=== PATIENT | male | born 1930 | race African-American/Black ===

== ENCOUNTER 2018-03-10 11:46 | Inpatient (IN) | payer MEDICARE ==
[~2018-03-10] VITALS: Ht 170.2 cm; Wt 86.8 kg
[~2018-03-10 11:46] MED LIST: ADALAT CC30 MG PO; CALCIUM CITRAT200 MG PO; CENTRUM SILVER1 CTB PO; CITRUCEL PACKET1 PKT PO; CITRUCEL WITH500 MG PO; COD LIVER OIL 11 SGL PO; COD LIVER OIL1 CAP PO; FISH OIL CONC1000 MG PO; FLOMAX 0.40.4 MG/CAP PO; MACROBID 1100 MG/CAP PO; MAREPA1200 MG PO; MUCINEX 60600 MG/TA1 PO; NIFEDIAC CC30 MG PO; TRIAMTERENE AND1 TA1 PO; TRIAMTERENE AND1 TAB PO; TYLENOL 500MG500 MG PO; TYLENOL PM EXTR1 TA1 PO; VITAMIN C BUFF500 MG PO; VITAMIN C500 MG PO
[2018-03-10 15:22] VITALS: BP 140/58
[2018-03-10 17:26] LABS: MEAN CELL VOLUME 93 fl (80.0-100.0); MEAN CORPUSCULAR HGB CONC 37 g/dl (33.0-37.0); MEAN PLATELET VOLUME 10.1 fl (7.4-10.4); PLATELET COUNT 210 K/mm3 (130-400); RED BLOOD COUNT 2.57 M/mm3 (4.20-5.60); REDCELL DISTRIBUTION WIDTH-CV 12.5 % (11.5-14.5)
[2018-03-10 17:27] LABS: HEMATOCRIT 23.8 % (42.0-52.0); HEMOGLOBIN 8.9 g/dl (13.5-18.0); MEAN CORPUSCULAR HEMOGLOBIN 35 pg (27.0-31.0)
[2018-03-10 17:31] LABS: ALBUMIN 3.6 gm/dL (3.5-5.0); BILIRUBIN,TOTAL 0.8 mg/dL (0.0-1.0); CALCIUM 8.8 mg/dL (8.4-10.2); CREATININE, serum 1.06 mg/dL (0.66-1.25); MAGNESIUM 1.9 mg/dL (1.6-2.3); POTASSIUM 3.7 mmol/L (3.4-5.0); TOTAL PROTEIN 7.4 gm/dL (6.4-8.2)
[2018-03-10 18:17] LABS: BAND 7 % (0-10); BASOPHIL 1 % (0-2); EOSINOPHIL 1 % (0-4); LYMPHOCYTE 27 % (20.0-51.0); METAMYELOCYTE 1 % (0-0); NEUTROPHILS 61 % (42.0-75.2); NUCLEATED RED BLOOD CELL 1 (0-6)
[2018-03-10 18:18] LABS: PLATELET ESTIMATE NORMAL (NORMAL)
[2018-03-10 20:19] VITALS: BP 122/59; PULSE 99; TEMP 98.1
[2018-03-10 23:59] VITALS: BP 130/55; PULSE 68; TEMP 97.6
[2018-03-11] VITALS (7 sets, daily range): BP systolic 115–161; BP diastolic 55–85; PULSE 57–91; TEMP 97.4–100.6
[2018-03-11 06:20] LABS: MEAN CELL VOLUME 96 fl (80.0-100.0); MEAN CORPUSCULAR HGB CONC 37 g/dl (33.0-37.0); PLATELET COUNT 187 K/mm3 (130-400); RED BLOOD COUNT 2.07 M/mm3 (4.20-5.60); REDCELL DISTRIBUTION WIDTH-CV 12.6 % (11.5-14.5)
[2018-03-11 06:22] LABS: HEMATOCRIT 19.9 % (42.0-52.0); HEMOGLOBIN 7.3 g/dl (13.5-18.0); MEAN CORPUSCULAR HEMOGLOBIN 35 pg (27.0-31.0)
[2018-03-11 06:30] LABS: CALCIUM 7.8 mg/dL (8.4-10.2); CREATININE, serum 0.89 mg/dL (0.66-1.25); POTASSIUM 3.6 mmol/L (3.4-5.0)
[2018-03-11 07:43] LABS: BAND 2 % (0-10); EOSINOPHIL 4 % (0-4); LYMPHOCYTE 26 % (20.0-51.0); METAMYELOCYTE 1 % (0-0); NEUTROPHILS 61 % (42.0-75.2); NUCLEATED RED BLOOD CELL 1 (0-6); PLATELET ESTIMATE NORMAL (NORMAL)
[2018-03-12 04:15] VITALS: BP 119/52; PULSE 87; TEMP 99.5
[2018-03-12 06:56] LABS: MEAN CELL VOLUME 96 fl (80.0-100.0); MEAN CORPUSCULAR HGB CONC 36 g/dl (33.0-37.0); MEAN PLATELET VOLUME 9.8 fl (7.4-10.4); PLATELET COUNT 244 K/mm3 (130-400); RED BLOOD COUNT 2.21 M/mm3 (4.20-5.60); REDCELL DISTRIBUTION WIDTH-CV 12.6 % (11.5-14.5)
[2018-03-12 07:05] LABS: HEMATOCRIT 21.2 % (42.0-52.0); HEMOGLOBIN 7.7 g/dl (13.5-18.0); MEAN CORPUSCULAR HEMOGLOBIN 35 pg (27.0-31.0)
[2018-03-12 07:14] LABS: CALCIUM 7.8 mg/dL (8.4-10.2); CREATININE, serum 0.93 mg/dL (0.66-1.25); POTASSIUM 3.5 mmol/L (3.4-5.0)
[2018-03-12 07:56] LABS: BAND 14 % (0-10); DOHLE BODIES PRESENT; EOSINOPHIL 1 % (0-4); LYMPHOCYTE 17 % (20.0-51.0); NEUTROPHILS 64 % (42.0-75.2); PLATELET ESTIMATE NORMAL (NORMAL); POLYCHROMASIA 2+; TOXIC GRANULATION PRESENT
[2018-03-12 08:11] VITALS: BP 135/58; PULSE 83; TEMP 98.9
[2018-03-12 11:50] LABS: COLLECTION METHOD CLEAN CATCH
[2018-03-12 12:04] LABS: MUCOUS Present /lpf; PH 5 (5-8); SQUAMOUS EPITHELIAL 0-2 /hpf; URINE APPEARANCE Hazy; URINE BACTERIA None Seen /hpf; URINE BILIRUBIN Negative (NEGATIVE); URINE BLOOD 1+ (NEGATIVE); URINE COLOR Yellow; URINE GLUCOSE Negative (NEGATIVE); URINE KETONE Trace (NEGATIVE); URINE LEUKOCYTE ESTERASE Negative (NEGATIVE); URINE NITRATE Negative (NEGATIVE); URINE PROTEIN(semi-quant) Negative (NEGATIVE); URINE UROBILINOGEN Negative (NEGATIVE)
[2018-03-12 12:30] VITALS: BP 129/54; PULSE 86; TEMP 98.7
[2018-03-12 16:24] VITALS: BP 136/67; PULSE 90; TEMP 99.1
[2018-03-12 20:16] VITALS: BP 127/57; PULSE 85; TEMP 98.5
[2018-03-12 23:25] VITALS: BP 101/48; PULSE 93; TEMP 98.6
[2018-03-13] VITALS (9 sets, daily range): BP systolic 113–143; BP diastolic 49–75; PULSE 35–95; TEMP 97.9–98.2
[2018-03-13 06:41] LABS: MEAN CELL VOLUME 98 fl (80.0-100.0); MEAN CORPUSCULAR HGB CONC 35 g/dl (33.0-37.0); MEAN PLATELET VOLUME 9.6 fl (7.4-10.4); PLATELET COUNT 269 K/mm3 (130-400); RED BLOOD COUNT 2.19 M/mm3 (4.20-5.60); REDCELL DISTRIBUTION WIDTH-CV 14.6 % (11.5-14.5)
[2018-03-13 06:49] LABS: HEMATOCRIT 21.5 % (42.0-52.0); HEMOGLOBIN 7.6 g/dl (13.5-18.0); MEAN CORPUSCULAR HEMOGLOBIN 35 pg (27.0-31.0)
[2018-03-13 06:57] LABS: CALCIUM 7.6 mg/dL (8.4-10.2); CREATININE, serum 0.91 mg/dL (0.66-1.25)
[2018-03-13 08:04] LABS: BAND 15 % (0-10); LYMPHOCYTE 16 % (20.0-51.0); NEUTROPHILS 69 % (42.0-75.2)
[2018-03-13 08:05] LABS: PLATELET ESTIMATE NORMAL (NORMAL)
[2018-03-14 04:53] VITALS: BP 119/52; PULSE 82; TEMP 98
[2018-03-14 08:11] LABS: MEAN CELL VOLUME 96 fl (80.0-100.0); MEAN CORPUSCULAR HGB CONC 36 g/dl (33.0-37.0); MEAN PLATELET VOLUME 9.3 fl (7.4-10.4); PLATELET COUNT 286 K/mm3 (130-400); RED BLOOD COUNT 2.12 M/mm3 (4.20-5.60); REDCELL DISTRIBUTION WIDTH-CV 14.8 % (11.5-14.5)
[2018-03-14 08:15] LABS: HEMATOCRIT 20.3 % (42.0-52.0); HEMOGLOBIN 7.3 g/dl (13.5-18.0); MEAN CORPUSCULAR HEMOGLOBIN 34 pg (27.0-31.0)
[2018-03-14 08:20] VITALS: BP 138/75; PULSE 90; TEMP 98.4
[2018-03-14 08:25] LABS: CALCIUM 7.7 mg/dL (8.4-10.2); CREATININE, serum 0.92 mg/dL (0.66-1.25); POTASSIUM 3.3 mmol/L (3.4-5.0)
[2018-03-14 09:11] LABS: BAND 12 % (0-10); EOSINOPHIL 2 % (0-4); LYMPHOCYTE 16 % (20.0-51.0); METAMYELOCYTE 1 % (0-0); NEUTROPHILS 69 % (42.0-75.2); PLATELET ESTIMATE NORMAL (NORMAL); POLYCHROMASIA 1+
[2018-03-14 09:12] LABS: HYPOCHROMIA 1+
[2018-03-14] MEDS ORDERED: K-DUR20 MEQ PO (10:11)
[2018-03-14] MEDS ORDERED: FERROUS SU325 MG/TAB PO (10:26)
[2018-03-14] MEDS ORDERED: MACROBID 1100 MG/CAP PO ×2 (11:42→11:43)
[2018-03-14 12:20] VITALS: BP 123/62; PULSE 84; TEMP 98.3
== END 2018-03-14 15:10 | disposition home health service (06) | DRG 378 ==
LOC: COL.ER 11:46 → MEDICAL 14:23
PROVIDERS: Internal Medicine Gastroenterology; Nurse Practitioner Family; Physician Assistant
PROC: 0DJ08ZZ Inspection of Upper Intestinal Tract, Via Natural or Artificial Opening Endoscopic (ICD-10-PCS; principal; 2018-03-13 14:45)
PROC: 0DJD8ZZ Inspection of Lower Intestinal Tract, Via Natural or Artificial Opening Endoscopic (ICD-10-PCS; 2018-03-13 14:45)
DX: K57.31 Diverticulosis of large intestine without perforation or abscess with bleeding (principal); N39.0 Urinary tract infection, site not specified; R78.81 Bacteremia; B96.89 Other specified bacterial agents as the cause of diseases classified elsewhere; N40.1 Benign prostatic hyperplasia with lower urinary tract symptoms; R33.8 Other retention of urine; I10 Essential (primary) hypertension; Z87.891 Personal history of nicotine dependence; D50.0 Iron deficiency anemia secondary to blood loss (chronic); E87.6 Hypokalemia
CPT/HCPCS: 99223-AI; 99231-AI; 99232-AI; 99233-AI; 99238; 99239; C9113; G0103; G0378; G8978-GP; G8979-GP; G8987-GO; G8988-GO; J0696; J1644; J1650; J2250; J3010; J3475; J7030

== ENCOUNTER 2018-05-31 18:47 | Inpatient (IN) | payer MEDICARE, OTHER ==
[~2018-05-31] VITALS: Ht 170.2 cm; Wt 82.9 kg
[~2018-05-31 18:47] MED LIST changes: +FERROUS SU325 MG/TAB PO; +K-DUR20 MEQ PO
[2018-05-31 20:32] LABS: COLLECTION METHOD CLEAN CATCH
[2018-05-31 20:38] LABS: BASO # 0.1 (0.0-0.2); BASO % 1.4 % (0.0-2.0); EOS # 0.1 (0.0-0.7); EOS % 1.5 % (0-4.0); GRAN # 4.1 (1.4-6.5); GRAN % 63.6 % (42.2-75.2); HEMATOCRIT 40.8 % (42.0-52.0); HEMOGLOBIN 14.6 g/dl (13.5-18.0); LYMPH # 1.8 (1.2-3.4); LYMPH % 27.2 % (20.0-51.0); MEAN CELL VOLUME 94 fl (80.0-100.0); MEAN CORPUSCULAR HEMOGLOBIN 34 pg (27.0-31.0); MEAN CORPUSCULAR HGB CONC 36 g/dl (33.0-37.0); MEAN PLATELET VOLUME 9.1 fl (7.4-10.4); MONO # 0.4 (0.1-0.6); MUCOUS Present /lpf; PH 5 (5-8); PLATELET COUNT 283 K/mm3 (130-400); RED BLOOD COUNT 4.34 M/mm3 (4.20-5.60); REDCELL DISTRIBUTION WIDTH-CV 13.2 % (11.5-14.5); SQUAMOUS EPITHELIAL 0-2 /hpf; URINE APPEARANCE Clear; URINE BACTERIA None Seen /hpf; URINE BILIRUBIN Negative (NEGATIVE); URINE BLOOD Negative (NEGATIVE); URINE COLOR Yellow; URINE GLUCOSE Negative (NEGATIVE); URINE KETONE Negative (NEGATIVE); URINE LEUKOCYTE ESTERASE Negative (NEGATIVE); URINE NITRATE Negative (NEGATIVE); URINE PROTEIN(semi-quant) Negative (NEGATIVE); URINE UROBILINOGEN Negative (NEGATIVE)
[2018-05-31 20:46] LABS: ALBUMIN 4.4 gm/dL (3.5-5.0); BILIRUBIN,TOTAL 1.5 mg/dL (0.0-1.0); C-REACTIVE PROTEIN 0.8 mg/dL (0.0-0.9); CALCIUM 9.2 mg/dL (8.4-10.2); CREATININE, serum 1.07 mg/dL (0.66-1.25); POTASSIUM 4.2 mmol/L (3.4-5.0); TOTAL PROTEIN 8.4 gm/dL (6.4-8.2)
[2018-06-01] VITALS (7 sets, daily range): BP systolic 117–155; BP diastolic 54–72; PULSE 56–110; TEMP 97.5–98.5
[2018-06-01 03:49] LABS: BASO # 0.1 (0.0-0.2); BASO % 0.9 % (0.0-2.0); EOS # 0.3 (0.0-0.7); EOS % 4.7 % (0-4.0); GRAN # 3.1 (1.4-6.5); GRAN % 49.3 % (42.2-75.2); HEMOGLOBIN 11.8 g/dl (13.5-18.0); LYMPH # 2.3 (1.2-3.4); LYMPH % 35.5 % (20.0-51.0); MEAN CELL VOLUME 94 fl (80.0-100.0); MEAN CORPUSCULAR HEMOGLOBIN 33 pg (27.0-31.0); MEAN CORPUSCULAR HGB CONC 35 g/dl (33.0-37.0); MEAN PLATELET VOLUME 9.3 fl (7.4-10.4); MONO # 0.6 (0.1-0.6); MONO % 9.3 % (1.7-9.3); PLATELET COUNT 245 K/mm3 (130-400); RED BLOOD COUNT 3.57 M/mm3 (4.20-5.60); REDCELL DISTRIBUTION WIDTH-CV 13.4 % (11.5-14.5)
[2018-06-01 03:50] LABS: HEMATOCRIT 33.7 % (42.0-52.0)
[2018-06-01 03:59] LABS: CALCIUM 8.3 mg/dL (8.4-10.2); CREATININE, serum 0.95 mg/dL (0.66-1.25)
[2018-06-01 10:25] LABS: HEMOGLOBIN 12.5 g/dl (13.5-18.0)
[2018-06-01 10:27] LABS: HEMATOCRIT 35.7 % (42.0-52.0)
[2018-06-01 15:52] LABS: HEMOGLOBIN 12.2 g/dl (13.5-18.0)
[2018-06-01] MEDS ORDERED: MAXZIDE-25MG TA1 TAB PO (16:19)
[2018-06-01] MEDS ORDERED: ADALAT CC30 MG PO (16:20)
[2018-06-01 21:26] LABS: HEMATOCRIT 26.3 % (42.0-52.0)
[2018-06-01 21:27] LABS: HEMOGLOBIN 9.5 g/dl (13.5-18.0)
[2018-06-02] VITALS (7 sets, daily range): BP systolic 101–148; BP diastolic 43–85; PULSE 53–87; TEMP 97.2–98.9
[2018-06-02 01:25] LABS: HEMOGLOBIN 8.7 g/dl (13.5-18.0)
[2018-06-02 12:19] LABS: HEMATOCRIT 24.5 % (42.0-52.0); HEMOGLOBIN 8.5 g/dl (13.5-18.0)
[2018-06-02 17:23] LABS: HEMATOCRIT 25.3 % (42.0-52.0)
[2018-06-02 23:35] LABS: HEMATOCRIT 21.8 % (42.0-52.0); HEMOGLOBIN 7.7 g/dl (13.5-18.0)
[2018-06-03] VITALS (8 sets, daily range): BP systolic 104–133; BP diastolic 40–61; PULSE 70–87; TEMP 97.5–98.3
[2018-06-03 07:03] LABS: CALCIUM 7.9 mg/dL (8.4-10.2); CREATININE, serum 0.87 mg/dL (0.66-1.25); POTASSIUM 3.6 mmol/L (3.4-5.0)
[2018-06-03 07:06] LABS: HEMATOCRIT 20.9 % (42.0-52.0); HEMOGLOBIN 7.5 g/dl (13.5-18.0)
[2018-06-03 15:27] LABS: HEMATOCRIT 25.4 % (42.0-52.0); HEMOGLOBIN 9.2 g/dl (13.5-18.0)
[2018-06-03] MEDS ORDERED: PROTONIX 40MG T40 MG PO (15:46)
== END 2018-06-03 17:11 | disposition home or self-care (01) | DRG 378 ==
LOC: COL.ER 18:47 → MEDICAL 22:33
PROVIDERS: Internal Medicine; Nurse Practitioner; Nurse Practitioner Family; Physician Assistant
DX: K57.91 Diverticulosis of intestine, part unspecified, without perforation or abscess with bleeding (principal); D62 Acute posthemorrhagic anemia; I10 Essential (primary) hypertension; E78.5 Hyperlipidemia, unspecified; N40.0 Benign prostatic hyperplasia without lower urinary tract symptoms
CPT/HCPCS: OP; 99232-AI; 99239; C9113; G0378; J7030; P9016; Q9967

== ENCOUNTER 2019-03-20 10:56 | Inpatient (IN) | payer MEDICARE, OTHER ==
[~2019-03-20] VITALS: Ht 170.2 cm; Wt 79.0 kg
[~2019-03-20 10:56] MED LIST changes: +MAXZIDE-25MG TA1 TAB PO; +PROTONIX 40MG T40 MG PO
[2019-03-20] MEDS ORDERED: MAXZIDE-25MG TA1 TAB PO (11:11)
[2019-03-20] MEDS ORDERED: ADALAT CC30 MG PO (11:11)
[2019-03-20] MEDS ORDERED: VITAMINC1000TA (11:12)
[2019-03-20] MEDS ORDERED: MASON NATURAL1200 MG PO (11:12)
[2019-03-20] MEDS ORDERED: FERROUSAL325 MG PO (11:13)
[2019-03-20] MEDS ORDERED: MUCINEX 60600 MG/TA1 PO (11:13)
[2019-03-20] MEDS ORDERED: LEADER FIBER1 POW (11:13)
[2019-03-20] MEDS ORDERED: FLOMAX 0.40.4 MG/CAP PO (11:14)
[2019-03-20 12:03] LABS: INR 1.3 (0.8-3.0); PROTHROMBIN TIME 14.4 SECONDS (9.7-12.8)
[2019-03-20 12:16] LABS: ALBUMIN 3.8 gm/dL (3.5-5.0); BILIRUBIN,TOTAL 1.4 mg/dL (0.0-1.0); CALCIUM 8.7 mg/dL (8.4-10.2); CREATININE, serum 1.16 (0.66-1.25); POTASSIUM 3.9 mmol/L (3.4-5.0); TOTAL PROTEIN 7.3 gm/dL (6.4-8.2)
[2019-03-20 12:20] LABS: BASO % 0.5 % (0.0-2.0); EOS % 0.1 % (0-4.0); GRAN # 6.4 (1.4-6.5); GRAN % 83.6 % (42.2-75.2); HEMATOCRIT 33.9 % (42.0-52.0); HEMOGLOBIN 12.2 g/dl (13.5-18.0); LYMPH # 0.8 (1.2-3.4); LYMPH % 10.2 % (20.0-51.0); MEAN CELL VOLUME 98 fl (80.0-100.0); MEAN CORPUSCULAR HEMOGLOBIN 35 pg (27.0-31.0); MEAN CORPUSCULAR HGB CONC 36 g/dl (33.0-37.0); MEAN PLATELET VOLUME 9.6 fl (7.4-10.4); MONO # 0.4 (0.1-0.6); MONO % 4.9 % (1.7-9.3); PLATELET COUNT 258 K/mm3 (130-400); RED BLOOD COUNT 3.46 M/mm3 (4.20-5.60); REDCELL DISTRIBUTION WIDTH-CV 13.4 % (11.5-14.5)
[2019-03-20 12:33] VITALS: BP 95/65; PULSE 82
[2019-03-20 14:30] VITALS: BP 120/77; PULSE 74; TEMP 98.4
[2019-03-20 15:52] VITALS: BP 134/59; PULSE 73; TEMP 97.9
--- NOTE | 2019-03-20 16:30 | NUR ---
Admission assessment completed, alert/oriented, vital signs stable, denies any pain or discomfort, heart RRR,distal pulses are palpable, lungs CTA/ no resp.difficulty, abdomen is soft and non-tender, patient has not had any additional bowel movements, GI consulted and notified, patient family present, they deny other needs at [facility]
[2019-03-20 18:53] VITALS: BP 123/70; PULSE 77; TEMP 97.4
[2019-03-20 19:59] LABS: HEMOGLOBIN 10.8 g/dl (13.5-18.0)
[2019-03-20 20:08] LABS: HEMATOCRIT 30.1 % (42.0-52.0)
[2019-03-21 00:02] VITALS: BP 96/46; PULSE 70; TEMP 97.5
[2019-03-21 03:56] VITALS: BP 103/60; PULSE 67; TEMP 97.5
--- NOTE | 2019-03-21 04:40 | NUR ---
PT HAD UNEVENTFUL NOC. NO C/O PAIN. PT APPEARED TO HAVE SLEPT WELL. NO ISSUES OR CONSERS VOICED OVER NIGHT.
[2019-03-21 07:03] VITALS: BP 113/57; PULSE 71; TEMP 97.5
[2019-03-21 07:47] LABS: BASO # 0.1 (0.0-0.2); BASO % 0.8 % (0.0-2.0); EOS # 0.3 (0.0-0.7); EOS % 3.4 % (0-4.0); GRAN # 4.2 (1.4-6.5); GRAN % 52.4 % (42.2-75.2); LYMPH # 2.8 (1.2-3.4); LYMPH % 34.8 % (20.0-51.0); MEAN CELL VOLUME 101 fl (80.0-100.0); MEAN CORPUSCULAR HGB CONC 35 g/dl (33.0-37.0); MEAN PLATELET VOLUME 9.7 fl (7.4-10.4); MONO # 0.7 (0.1-0.6); MONO % 8.2 % (1.7-9.3); PLATELET COUNT 228 K/mm3 (130-400); RED BLOOD COUNT 2.69 M/mm3 (4.20-5.60); REDCELL DISTRIBUTION WIDTH-CV 13.5 % (11.5-14.5)
[2019-03-21 07:48] LABS: HEMATOCRIT 27.1 % (42.0-52.0); HEMOGLOBIN 9.4 g/dl (13.5-18.0); MEAN CORPUSCULAR HEMOGLOBIN 35 pg (27.0-31.0)
[2019-03-21 07:55] LABS: CALCIUM 8.1 mg/dL (8.4-10.2); CREATININE, serum 1.03 (0.66-1.25); POTASSIUM 3.9 mmol/L (3.4-5.0)
[2019-03-21 11:01] VITALS: BP 113/80; PULSE 65; TEMP 98.1
--- NOTE | 2019-03-21 12:22 | NUR ---
Network Support Analyst visited with patient while family was in room but nothing else needed at this time.
[2019-03-21 15:29] VITALS: BP 112/44; PULSE 40; TEMP 98.1
--- NOTE | 2019-03-21 16:25 | NUR ---
ANTONINO met with the patient to discuss a discharge plan. The patient lives alone in [place]. The patient does not use any DME and he reports independence with ADLs. The patient's PCP is Dr. Alaniz and the patient receives his medications from [facility]. The patient reports no difficulties obtaining his medications. The patient does not have advanced directives in the EMR. However he was interested in obtaining a DPOA-HC form. ANTONINO provided the form to the patient. The patient reports his son will take him home upon discharge. There are no additional needs at this time.
[2019-03-21 19:39] VITALS: BP 114/67; PULSE 78; TEMP 98.2
--- NOTE | 2019-03-21 23:00 | NUR ---
PT CALLED THIS NURSE INTO ROOM. STATED THAT HE HAD 3 LOOSE BLOODY STOOLS AND THAT HE WAS WEAK AND DIZZY AND NEEDS A BLOOD TRANSFUSION. THIS NURSE CALLED MERCHANDISE SUPPORT ASSOCIATE AND OBTIANED ORDER FOR H&H. LAB NOTIFIED AND CAME TO DRAW PT, LAB WAS UNABLE TO GET BLOOD. STOCK CLERK S[facility]F [facility]ICE STORE HAD TO ASSIST IN DRAWING LAB. SPECIMEN WAS SENT TO GET LEVEL READ.
[2019-03-22] VITALS (10 sets, daily range): BP systolic 102–146; BP diastolic 38–112; PULSE 69–86; TEMP 97.4–98.6
--- NOTE | 2019-03-22 00:30 | NUR ---
H&H CAME BACK AND HGB WAS 7.8. THIS NURSE NOTIFIED SHERRI PINTO OF LEVEL. BLAIR STATED THAT PT DIDNT MEET BLOOD TRANSFUSION CRITERIA DUE TO HAVING LACK OF CADIAC PROBLEMS AND NOT ON CARDIAC MEDS. THAT WE WOULD KEEP A CLOSE ON ON HIS LEVELS AND SEE HOW IT LOOKS LATER. AND IF WE NEED TO DO A TRASNFUSION LATER WE WILL. THIS NURSE INFORMED PT, TOLD PT THAT HIS LEVEL WASNT LOW ENOUGH FOR A BLOOD TRANSFUSION AT THIS POINT BUT WE WILL CLOSELY WATCH HIS BLOOD LEVELS. PT STATED "SO THEY ARE JUST GOING TO LET ME LAY HERE AND ." INFORMED PT THAT HIS HGB LEVELS ARENT LOW ENOUGH THAT HE WOULD , AND THAT HE HAD A HEART MONITOR BOX ON AND IT WILL LET US KNOW IF ANYTHING HAPPENS TO YOUR HEART. PT WAS UPSET FOR ABOUT THE SITUATION FOR ABLE, THIS NURSE PROVIDED MORE REASURANCE AND PT THEN CALMED AND STATED THAT HE WAS GOING TO TRY TO GET SOME SLEEP THEN. THIS NURSE TOLD PT THAT SINCE HE HAD FELT WEEK AND DIZZY WHEN HE GOT UP TO GO THE BATHROOM THAT HE CAN CALL FOR HELP AND WE CAN MAKE SURE HE MAKES IT SAFELY
[2019-03-22 00:51] LABS: HEMATOCRIT 22.6 % (42.0-52.0); HEMOGLOBIN 7.8 g/dl (13.5-18.0)
--- NOTE | 2019-03-22 05:51 | NUR ---
PT WAS ABLE TO GET SOME REST THIS NOC.
[2019-03-22 07:14] LABS: HEMATOCRIT 20.5 % (42.0-52.0); HEMOGLOBIN 7.3 g/dl (13.5-18.0)
--- NOTE | 2019-03-22 07:15 | NUR ---
Pt AAOx4 sitting on edge of bed eating breakfast without difficulty or complaints of nausea or vomiting. Denies abdominal pain. Telemetry in place. Call light in reach. Updated on hemoglobin lab, reviewed educational material covered yesterday about plan of care. New education provided
[2019-03-22 07:24] LABS: CALCIUM 7.9 mg/dL (8.4-10.2); CREATININE, serum 0.91 (0.66-1.25); MAGNESIUM 1.8 mg/dL (1.6-2.3); POTASSIUM 3.6 mmol/L (3.4-5.0)
[2019-03-22 18:07] LABS: BASO % 0.3 % (0.0-2.0); EOS % 0.3 % (0-4.0); GRAN # 7.5 (1.4-6.5); GRAN % 73.6 % (42.2-75.2); LYMPH % 19.3 % (20.0-51.0); MEAN CELL VOLUME 102 fl (80.0-100.0); MEAN CORPUSCULAR HGB CONC 34 g/dl (33.0-37.0); MEAN PLATELET VOLUME 9.6 fl (7.4-10.4); MONO # 0.6 (0.1-0.6); MONO % 5.7 % (1.7-9.3); PLATELET COUNT 189 K/mm3 (130-400); RED BLOOD COUNT 1.85 M/mm3 (4.20-5.60); REDCELL DISTRIBUTION WIDTH-CV 14.2 % (11.5-14.5)
[2019-03-22 18:15] LABS: HEMATOCRIT 18.9 % (42.0-52.0); HEMOGLOBIN 6.5 g/dl (13.5-18.0); MEAN CORPUSCULAR HEMOGLOBIN 35 pg (27.0-31.0)
--- NOTE | 2019-03-22 21:00 | NUR ---
PT CONTINUES TO DRINK Golytely AT THIS TIME. HAS BEEN GOING TO THE BATHROOM REGULARLY.
--- NOTE | 2019-03-22 23:40 | NUR ---
PT HAS ORDER FOR BLOOD TRANSFUSION. THIS NURSE HAD BEEN WAITING FOR LAB TO HAVE BLOOD READY FOR PICKUP, THIS NURSE CALLED LAB AT 2200 AND ASKED IF THEY HAD SEEN ORDER FOR BLOOD PRODUCT. LAB HAD BLOOD PRODUCT READY SHORTLY AFTER THIS NURSE BAGAN BLOOD TRANSFUSION AT 2313. STAYED WITH PT FOR FIRST 15 MINS. PT STATED HE DIDNT HAVE ANY NOTICED CHANGED THAT WOULD INDICATE ALLERGIC REACTION. VITALS OBTAINED PER PROTOCOL.
[2019-03-23] VITALS (13 sets, daily range): BP systolic 109–134; BP diastolic 41–107; PULSE 65–89; TEMP 97–98.6
--- NOTE | 2019-03-23 02:00 | NUR ---
BLOOD TRANSFUSION COMPLETED. PT HAD NO NOTED REACTIONS TO BLOOD PRODUCT. PT FINISHED Golytely AT APPROX 0030, AND CONTINUES TO HAVE MORE BM'S. NO ISSUES OR CONSERNS VOICED. REMAINS PLEASENT AND COOPERATIVE WITH CARES.
[2019-03-23 03:11] LABS: BASO % 0.4 % (0.0-2.0); EOS # 0.1 (0.0-0.7); EOS % 0.5 % (0-4.0); GRAN # 7.1 (1.4-6.5); GRAN % 70.7 % (42.2-75.2); LYMPH % 19.8 % (20.0-51.0); MEAN CORPUSCULAR HGB CONC 35 g/dl (33.0-37.0); MEAN PLATELET VOLUME 9.5 fl (7.4-10.4); MONO # 0.8 (0.1-0.6); MONO % 7.8 % (1.7-9.3); PLATELET COUNT 178 K/mm3 (130-400); RED BLOOD COUNT 2.23 M/mm3 (4.20-5.60); REDCELL DISTRIBUTION WIDTH-CV 15.8 % (11.5-14.5)
[2019-03-23 03:15] LABS: HEMATOCRIT 21.7 % (42.0-52.0); HEMOGLOBIN 7.6 g/dl (13.5-18.0); MEAN CELL VOLUME 97 fl (80.0-100.0); MEAN CORPUSCULAR HEMOGLOBIN 34 pg (27.0-31.0)
[2019-03-23 03:23] LABS: CREATININE, serum 0.92 (0.66-1.25); POTASSIUM 3.6 mmol/L (3.4-5.0)
--- NOTE | 2019-03-23 09:15 | NUR ---
Assessment complete. Pt is AXO X3, denies having any pain at this time. Breathing is even and unlabored on room air. Tele on. LF INT flushes easily, remains free of complications, and is CDI. Pt is resting quielty in the bed at this time and he denies further needs. Call light within reach, will continue to monitor.
--- NOTE | 2019-03-23 15:10 | NUR ---
Pt left the floor at this time for procedure.
--- NOTE | 2019-03-23 17:15 | NUR ---
Pt returned to room 353 via cart with endo staff. Pt able to transfer from the cart to the floor bed with the assistance of one. He is sitting up in the bed and he denies further needs. Call light within reach.
[2019-03-23 18:28] LABS: HEMATOCRIT 22.1 % (42.0-52.0); HEMOGLOBIN 7.7 g/dl (13.5-18.0)
--- NOTE | 2019-03-23 18:39 | NUR ---
Since returning to the floor after the procedure the pt has been resting quietly. He has remained free of pain. Hgb 7.7 called to SHERRI Avila. Pt is sitting up in the bed and he denies further needs. Call light within reach.
--- NOTE | 2019-03-23 19:26 | NUR ---
Report given to JAIME Mixon.
--- NOTE | 2019-03-23 20:30 | NUR ---
Initial shift assessment done-- sitting at edge of bed, states feels fine--denies pain, Up in room, steady on feet at this time, VSS, patients son came in, talked with his dad about what the doctors said after coloscopy and possibility of transferring to [facility]-- pt states understanding, will have another hgb check in the morning- Tele on,,states will call if needs assistance
[2019-03-24] VITALS (138 sets, daily range): BP systolic 90–121; BP diastolic 42–72; PULSE 63–775; TEMP 97.3–98.9; O2SAT 70–100
--- NOTE | 2019-03-24 05:30 | NUR ---
Quiet night, slept well- no requests, states " I feel fine" VSS
[2019-03-24 06:28] LABS: BASO % 0.4 % (0.0-2.0); EOS # 0.2 (0.0-0.7); EOS % 1.7 % (0-4.0); GRAN # 6.6 (1.4-6.5); GRAN % 65.3 % (42.2-75.2); LYMPH # 2.5 (1.2-3.4); MEAN CELL VOLUME 101 fl (80.0-100.0); MEAN CORPUSCULAR HGB CONC 34 g/dl (33.0-37.0); MONO # 0.7 (0.1-0.6); PLATELET COUNT 207 K/mm3 (130-400); RED BLOOD COUNT 2.11 M/mm3 (4.20-5.60); REDCELL DISTRIBUTION WIDTH-CV 17.3 % (11.5-14.5)
[2019-03-24 06:29] LABS: HEMATOCRIT 21.2 % (42.0-52.0); HEMOGLOBIN 7.1 g/dl (13.5-18.0); MEAN CORPUSCULAR HEMOGLOBIN 34 pg (27.0-31.0)
--- NOTE | 2019-03-24 08:00 | NUR ---
Assessment completed, alert/oriented, vital signs stable, denies pain or discomfort, hemaglobin did drop to 7.1 this morning and i have notified the hospitalist, patient had large BM with significant amount of mary lou red blood noted in the stool, has ordered for another unit of PRBC to be given today/ and repreat H&H checks, heart RRR, lungs CTA, patient denies feeling SOA / Dizzy/ lightheaded with position changes, instructed we will keep on a CL diet for now and look into transfer to for upper GI bleed management, discussed plan of care with son Brain as well, denies other needs at this time
[2019-03-24 15:13] LABS: HEMATOCRIT 19.4 % (42.0-52.0); HEMOGLOBIN 6.9 g/dl (13.5-18.0)
--- NOTE | 2019-03-24 20:05 | NUR ---
Patient arrived, accompanied by JAIME Rubalcava. Patient family at bedside. Patient assessment completed and charted, please see documentation for details. Will assume care of patient at this time.
[2019-03-25] VITALS (235 sets, daily range): BP systolic 102–139; BP diastolic 49–73; PULSE 61–90; TEMP 97.5–98; O2SAT 66–100
[2019-03-25 00:47] LABS: HEMATOCRIT 21.1 % (42.0-52.0); HEMOGLOBIN 7.2 g/dl (13.5-18.0)
[2019-03-25 05:22] LABS: BASO % 0.5 % (0.0-2.0); EOS # 0.2 (0.0-0.7); EOS % 2.4 % (0-4.0); GRAN # 5.2 (1.4-6.5); GRAN % 63.7 % (42.2-75.2); LYMPH # 2.1 (1.2-3.4); LYMPH % 25.7 % (20.0-51.0); MEAN CORPUSCULAR HGB CONC 34 g/dl (33.0-37.0); MEAN PLATELET VOLUME 9.2 fl (7.4-10.4); MONO # 0.6 (0.1-0.6); MONO % 7.2 % (1.7-9.3); PLATELET COUNT 149 K/mm3 (130-400); REDCELL DISTRIBUTION WIDTH-CV 18.8 % (11.5-14.5)
[2019-03-25 05:28] LABS: HEMATOCRIT 20.7 % (42.0-52.0); HEMOGLOBIN 7.1 g/dl (13.5-18.0); MEAN CELL VOLUME 94 fl (80.0-100.0); MEAN CORPUSCULAR HEMOGLOBIN 32 pg (27.0-31.0)
[2019-03-25 05:33] LABS: CALCIUM 7.3 mg/dL (8.4-10.2); CREATININE, serum 0.85 (0.66-1.25)
[2019-03-25 05:35] LABS: POTASSIUM 2.9 mmol/L (3.4-5.0)
--- NOTE | 2019-03-25 07:00 | NUR ---
Bedside report received from JAIME Jon.
--- NOTE | 2019-03-25 07:40 | NUR ---
Assessment complete, patient states "get me out fo this hole, you put me in this basement, it is so cold, I haven't seen a doctor in 4 days." Patient kept repeating this over and over. Warm blankets given, coffee and warm tea offered, patient refused.
--- NOTE | 2019-03-25 07:55 | NUR ---
This RN spoke with sonBrain on phone regarding patient aggitation and confusion.
--- NOTE | 2019-03-25 09:00 | NUR ---
Spoke with Crystal RODRIGUEZ on phone.
--- NOTE | 2019-03-25 09:55 | NUR ---
[facility] here to place picc line.
--- NOTE | 2019-03-25 12:36 | NUR ---
This RN called Brain meeks to update on transfer to [facility] [place] [address]
--- NOTE | 2019-03-25 13:04 | NUR ---
Report called to JAIME Crowe at [facility] [place] [address].
--- NOTE | 2019-03-25 13:31 | NUR ---
Patient was accepted to [facility] in [place]. Patient will be transfered via EMS today.
--- NOTE | 2019-03-25 13:36 | NUR ---
[facility] here to apple picker patient for transfer to [facility] on the [address]. Demetrius De La Paz updated on transfer. [facility] updated on ETA.
--- NOTE | 2019-03-25 13:42 | NUR ---
All belongings sent with patient, ie glasses, wallet, cell phone, undertaker assistant, and clothes.
--- NOTE | 2019-03-25 13:44 | NUR ---
K[facility] infusing at 100MEQ/hr, one bag sent with EMS.
== END 2019-03-25 13:49 | disposition short-term general hospital (02) | DRG 378 ==
LOC: COL.ER 10:56 → MEDICAL 13:21 → ICU 03-24 19:50
PROVIDERS: Emergency Medicine; Internal Medicine Gastroenterology; Nurse Practitioner; Physician Assistant; ADMIT Internal Medicine
PROC: 0DBL8ZZ Excision of Transverse Colon, Via Natural or Artificial Opening Endoscopic (ICD-10-PCS; 2019-03-23)
PROC: 0DBP8ZZ Excision of Rectum, Via Natural or Artificial Opening Endoscopic (ICD-10-PCS; 2019-03-23)
PROC: 0DJ08ZZ Inspection of Upper Intestinal Tract, Via Natural or Artificial Opening Endoscopic (ICD-10-PCS; principal; 2019-03-23 15:00)
PROC: 02HV33Z Insertion of Infusion Device into Superior Vena Cava, Percutaneous Approach (ICD-10-PCS; 2019-03-25)
DX: K57.31 Diverticulosis of large intestine without perforation or abscess with bleeding (principal); D62 Acute posthemorrhagic anemia; I10 Essential (primary) hypertension; E78.5 Hyperlipidemia, unspecified; K57.90 Diverticulosis of intestine, part unspecified, without perforation or abscess without bleeding; K63.5 Polyp of colon; N40.0 Benign prostatic hyperplasia without lower urinary tract symptoms; K44.9 Diaphragmatic hernia without obstruction or gangrene; H26.9 Unspecified cataract; I95.9 Hypotension, unspecified; E87.6 Hypokalemia; E83.42 Hypomagnesemia; Z87.891 Personal history of nicotine dependence; D12.7 Benign neoplasm of rectosigmoid junction
CPT/HCPCS: OP; 99232-AI; 99233-AI; C1751; G0378; J2704; J3480; J7030; P9016

== ENCOUNTER 2019-05-25 20:40 | Emergency (ER) | payer MEDICARE, OTHER ==
[~2019-05-25] VITALS: Ht 170.2 cm; Wt 79.5 kg
[~2019-05-25 20:40] MED LIST changes: +FERROUSAL325 MG PO; +LEADER FIBER1 POW; +MASON NATURAL1200 MG PO; +VITAMINC1000TA
[2019-05-25 20:48] VITALS: TEMP 97.8
[2019-05-25] MEDS ORDERED: ASPIRIN E.C. 8181 MG PO (21:03)
[2019-05-25] MEDS ORDERED: IRON TABLETS325 MG PO (21:03)
[2019-05-25 21:04] LABS: HEMOGLOBIN 13.6 g/dl (13.5-18.0)
[2019-05-25] MEDS ORDERED: MAXZIDE-25MG TA1 TAB PO (21:04)
[2019-05-25 21:29] LABS: BASO # 0.1 (0.0-0.2); BASO % 0.9 % (0.0-2.0); EOS # 0.1 (0.0-0.7); EOS % 1.2 % (0-4.0); GRAN # 6.7 (1.4-6.5); GRAN % 78.9 % (42.2-75.2); HEMOGLOBIN 12.4 g/dl (13.5-18.0); LYMPH # 1.2 (1.2-3.4); LYMPH % 13.6 % (20.0-51.0); MEAN CELL VOLUME 94 fl (80.0-100.0); MEAN CORPUSCULAR HEMOGLOBIN 34 pg (27.0-31.0); MEAN CORPUSCULAR HGB CONC 36 g/dl (33.0-37.0); MEAN PLATELET VOLUME 9.4 fl (7.4-10.4); MONO # 0.4 (0.1-0.6); PLATELET COUNT 246 K/mm3 (130-400); RED BLOOD COUNT 3.69 M/mm3 (4.20-5.60); REDCELL DISTRIBUTION WIDTH-CV 13.7 % (11.5-14.5)
[2019-05-25 21:35] LABS: INR 1.2 (0.8-3.0); PROTHROMBIN TIME 14.1 SECONDS (9.7-12.8)
[2019-05-25 21:36] LABS: HEMATOCRIT 34.7 % (42.0-52.0)
[2019-05-25 21:37] LABS: PARTIAL THROMBOPLASTIN TIME 32.6 SECONDS (26.0-37.0)
[2019-05-25 21:47] LABS: ALBUMIN 3.7 gm/dL (3.5-5.0); BILIRUBIN,TOTAL 1.3 mg/dL (0.0-1.0); CALCIUM 8.4 mg/dL (8.4-10.2); CREATININE, serum 1.16 (0.66-1.25); POTASSIUM 4.1 mmol/L (3.4-5.0)
[2019-05-25 23:34] VITALS: BP 110/65; PULSE 72
== END 2019-05-25 23:38 | disposition short-term general hospital (02) ==
LOC: COL.ER 20:40
PROVIDERS: Emergency Medicine
DX: K92.2 Gastrointestinal hemorrhage, unspecified (principal); I10 Essential (primary) hypertension; Z79.82 Long term (current) use of aspirin
CPT/HCPCS: C9113; J7030